=== PATIENT | male | born 1995 | race Caucasian/White ===

== ENCOUNTER 2023-10-15 11:04 | Inpatient (IN) ==
[2023-10-15 12:32] LABS: BASOPHILS # (AUTO) 0.1 X10^3/uL (0.0-0.1); BASOPHILS % (AUTO) 0.7 % (0.2-1.0); EOSINOPHILS % (AUTO) 0.3 % (0.9-2.9); HEMATOCRIT 44.1 % (42.0-54.0); HEMOGLOBIN 14.9 g/dL (13.5-18.0); LYMPHOCYTES # (AUTO) 2.3 X10^3/uL (1.3-2.9); LYMPHOCYTES % (AUTO) 16.7 % (21.0-51.0); MEAN CORPUSCULAR HEMOGLOBIN 30.8 pg (27.0-34.0); MEAN CORPUSCULAR HGB CONC 33.8 g/dL (33.0-35.0); MEAN PLATELET VOLUME 8.8 fL (7.4-11.0); MONOCYTES % (AUTO) 7.4 % (0.0-13.0); NEUTROPHILS # (AUTO) 10.1 x10^3/uL (2.2-4.8); NEUTROPHILS % (AUTO) 74.9 % (42.0-75.0); PLATELET COUNT 236 X10^3/uL (150.0-450.0); RED BLOOD COUNT 4.85 X10^6/uL (4.7-6.0); WHITE BLOOD COUNT 13.5 X10^3/uL (3.6-10.0)
[2023-10-15 12:35] VITALS: BMI 21.4
[2023-10-15 12:45] LABS: ALANINE AMINOTRANSFERASE 21 Units/L (12-78); ALKALINE PHOSPHATASE 111 Units/L (46-116); ASPARTATE AMINO TRANSFERASE 17 Units/L (15-37); BLOOD UREA NITROGEN 10 mg/dL (7-18); CALCIUM 8.9 mg/dL (8.5-10.1); CARBON DIOXIDE 32.3 mmol/L (21-32); CHLORIDE 97 mmol/L (98-107); CREATININE 1.07 mg/dL (0.70-1.30); GLUCOSE 88 mg/dL (65-99); POTASSIUM 4.2 mmol/L (3.5-5.1); SODIUM 133 mmol/L (136-145); TOTAL PROTEIN 8.8 g/dL (6.4-8.2); eGFR NON BLACK RACES > 60 (>60)
[2023-10-15] MEDS: D5W IV ONE (13:33)
[2023-10-15] MEDS: CLEOCIN IV ONE (13:33)
[2023-10-15] MEDS: NS 250 ML IV 25 ML IV PRN (13:35)
[2023-10-15] MEDS: ZOSYN VIAL 3.375 GRAMS 3.375 G in NS 100 ML IV 100 ML IV NR (13:36)
[2023-10-15] MEDS: LR 1,000 ML IV 1,000 ML IV SCH (13:39)
[2023-10-15] MEDS ORDERED: STERILE WATER IRRIGATION IR ONE (14:07)
[2023-10-15] MEDS: VERSED ONE (14:25)
[2023-10-15] MEDS: DILAUDID INJ ONE (14:25)
[2023-10-15] MEDS: NS 500 ML IV 500 ML IV ONE (14:26)
[2023-10-15] MEDS: XYLOCAINE 1 % (PLAIN) ONE (14:40)
[2023-10-15] MEDS: POLYMYXIN B SULFATE ONE (14:40)
[2023-10-15] MEDS: NEOSPORIN OINT ONE (14:56)
[2023-10-15] MEDS: ZOSYN VIAL 3.375 GRAMS 3.375 G in NS 100 ML IV 100 ML IV SCH (19:19)
[2023-10-15] MEDS: CLEOCIN 600 MG IV PREMIX 600 MG/50 ML BAG IV SCH (19:26)
[2023-10-15] MEDS: NORCO 10/325 TAB PO PRN (19:27)
[2023-10-16] MEDS: TORADOL 30 MG VIAL IVP PRN (00:09)
[2023-10-16 06:07] LABS: BASOPHILS # (AUTO) 0.1 X10^3/uL (0.0-0.1); BASOPHILS % (AUTO) 0.7 % (0.2-1.0); EOSINOPHILS # (AUTO) 0.2 x10^3/uL (0.0-0.2); EOSINOPHILS % (AUTO) 2.1 % (0.9-2.9); HEMATOCRIT 40.7 % (42.0-54.0); HEMOGLOBIN 13.6 g/dL (13.5-18.0); LYMPHOCYTES # (AUTO) 3.2 X10^3/uL (1.3-2.9); LYMPHOCYTES % (AUTO) 39.2 % (21.0-51.0); MEAN CORPUSCULAR HEMOGLOBIN 30.5 pg (27.0-34.0); MEAN CORPUSCULAR HGB CONC 33.6 g/dL (33.0-35.0); MONOCYTES # (AUTO) 0.8 x10^3/uL (0.3-0.8); MONOCYTES % (AUTO) 9.9 % (0.0-13.0); NEUTROPHILS % (AUTO) 48.1 % (42.0-75.0); PLATELET COUNT 197 X10^3/uL (150.0-450.0); RED BLOOD COUNT 4.47 X10^6/uL (4.7-6.0); WHITE BLOOD COUNT 8.3 X10^3/uL (3.6-10.0)
[2023-10-16 06:14] LABS: ALANINE AMINOTRANSFERASE 17 Units/L (12-78); ALBUMIN 3.1 g/dL (3.4-5.0); ALKALINE PHOSPHATASE 87 Units/L (46-116); ASPARTATE AMINO TRANSFERASE 13 Units/L (15-37); BLOOD UREA NITROGEN 11 mg/dL (7-18); CALCIUM 8.9 mg/dL (8.5-10.1); CARBON DIOXIDE 30.6 mmol/L (21-32); CHLORIDE 100 mmol/L (98-107); COR CA(FOR HYPOALB) 9.6 mg/dL (8.5-10.1); GLUCOSE 90 mg/dL (65-99); POTASSIUM 4.4 mmol/L (3.5-5.1); SODIUM 136 mmol/L (136-145); TOTAL PROTEIN 7.1 g/dL (6.4-8.2); eGFR NON BLACK RACES > 60 (>60)
[2023-10-16] MEDS: NS IRRIGATION* 500 ML IR ONE ×2 (08:54→08:56)
[2023-10-16] MEDS: HYDROGEN PEROXIDE 3% MT PRN (08:54)
[2023-10-16] MEDS: BACTROBAN TOPICAL OINT TOP PRN (08:55)
[2023-10-16] MEDS: DILAUDID INJ IVP PRN (12:05)
--- NOTE | 2023-10-16 17:34 | DR.PROGNOT ---
HOSPITAL PROGRESS NOTE Progress Note for Day of: Progress Note Date: 10/16/23 Chief Complaint Chief Complaint: Patient is doing fairly well with less swallowing of left index finger but still with significant cellulitis and edema. Final culture report is not available yet. White count is normal and patient is afebrile. Past Medical Family Social History Allergies: Allergies No Known Drug Allergies [NKDA] Allergy (Unknown, Verified 10/15/23 11:58) Vital Signs Vital Signs: Vital Signs Temperature 98.1 F Temperature 97.7 F Pulse Rate [Right Brachial] 72 Pulse Rate [Right Brachial] 66 Respiratory Rate 17 Respiratory Rate 18 Respiratory Rate 18 Respiratory Rate 18 Respiratory Rate 18 Respiratory Rate 18 Blood Pressure [Right Arm] 132/59 Blood Pressure [Right Arm] 113/55 O2 Sat by Pulse Oximetry 98 O2 Sat by Pulse Oximetry 98 Physical Exam Oriented: Normal Eyes: Normal Ear: Normal Nose: Normal Throat: Normal Respiratory: Normal Cardiovascular: Normal Skin: Other (Left index finger with edema and erythema, no necrosis or abscess formation. Normal range of motion.) Speech Pattern: Clear and Appropriate Laboratory and Diagnostics 10/16/23 05:34 10/16/23 05:34 Labs: 10/15/23 14:44 Finger - Left Index Wound Gram Stain - Final 10/15/23 14:44 Finger - Left Index Wound Culture - Preliminary 10/15/23 12:14 Finger - Left Index Wound Culture - Preliminary Laboratory WBC 8.3 X10^3/uL (3.6-10.0) 10/16/23 05:34 RBC 4.47 X10^6/uL (4.7-6.0) L 10/16/23 05:34 Hgb 13.6 g/dL (13.5-18.0) 10/16/23 05:34 Hct 40.7 % (42.0-54.0) L 10/16/23 05:34 MCV 91.0 fL (80.0-100.0) 10/16/23 05:34 MCH 30.5 pg (27.0-34.0) 10/16/23 05:34 MCHC 33.6 g/dL (33.0-35.0) 10/16/23 05:34 RDW 13.0 % (11.6-16.5) 10/16/23 05:34 Plt Count 197 X10^3/uL (150.0-450.0) 10/16/23 05:34 MPV 9.0 fL (7.4-11.0) 10/16/23 05:34 Neut % (Auto) 48.1 % (42.0-75.0) 10/16/23 05:34 Lymph % (Auto) 39.2 % (21.0-51.0) 10/16/23 05:34 [place] % (Auto) 9.9 % (0.0-13.0) 10/16/23 05:34 Eos % (Auto) 2.1 % (0.9-2.9) 10/16/23 05:34 Baso % (Auto) 0.7 % (0.2-1.0) 10/16/23 05:34 Neut # (Auto) 4.0 x10^3/uL (2.2-4.8) 10/16/23 05:34 Lymph # (Auto) 3.2 X10^3/uL (1.3-2.9) H 10/16/23 05:34 [place] # (Auto) 0.8 x10^3/uL (0.3-0.8) 10/16/23 05:34 Eos # (Auto) 0.2 x10^3/uL (0.0-0.2) 10/16/23 05:34 Baso # (Auto) 0.1 X10^3/uL (0.0-0.1) 10/16/23 05:34 Absolute Nucleated RBC 0.0 /100WBC 10/16/23 05:34 Sodium 136 mmol/L (136-145) 10/16/23 05:34 Corrected Sodium TNP 10/16/23 05:34 Potassium 4.4 mmol/L (3.5-5.1) 10/16/23 05:34 Chloride 100 mmol/L (98-107) 10/16/23 05:34 Carbon Dioxide 30.6 mmol/L (21-32) 10/16/23 05:34 BUN 11 mg/dL (7-18) 10/16/23 05:34 Creatinine 1.00 mg/dL (0.70-1.30) 10/16/23 05:34 Est GFR (MDRD) Af Amer > 60 (>60) 10/16/23 05:34 Est GFR (MDRD) Non-Af > 60 (>60) 10/16/23 05:34 Glucose 90 mg/dL (65-99) 10/16/23 05:34 Calcium 8.9 mg/dL (8.5-10.1) 10/16/23 05:34 Corrected Calcium 9.6 mg/dL (8.5-10.1) 10/16/23 05:34 Total Bilirubin 0.70 mg/dL (0.2-1.0) 10/16/23 05:34 AST 13 Units/L (15-37) L 10/16/23 05:34 ALT 17 Units/L (12-78) 10/16/23 05:34 Alkaline Phosphatase 87 Units/L (46-116) 10/16/23 05:34 Total Protein 7.1 g/dL (6.4-8.2) 10/16/23 05:34 Albumin 3.1 g/dL (3.4-5.0) L 10/16/23 05:34 Globulin 4.0 g/dL (2.5-4.5) 10/16/23 05:34 Albumin/Globulin Ratio 0.8 Ratio (1.1-2.1) L 10/16/23 05:34 Assessment and Plan 1: Severe cellulitis left index finger status post debridement in the operating room. Same IV antibiotics and local care with elevation and dressing changes. Awaiting final culture report.
[2023-10-16] MEDS: BACTROBAN TOPICAL OINT TOP SCH (21:48)
[2023-10-16] MEDS: CLEOCIN VIAL 600 MG 900 MG in D5W 50 ML IV 50 ML IV ONE (21:48)
[2023-10-17 07:16] LABS: BASOPHILS # (AUTO) 0.1 X10^3/uL (0.0-0.1); EOSINOPHILS # (AUTO) 0.2 x10^3/uL (0.0-0.2); EOSINOPHILS % (AUTO) 3.3 % (0.9-2.9); HEMATOCRIT 40.4 % (42.0-54.0); HEMOGLOBIN 13.5 g/dL (13.5-18.0); LYMPHOCYTES # (AUTO) 2.7 X10^3/uL (1.3-2.9); LYMPHOCYTES % (AUTO) 45.4 % (21.0-51.0); MEAN CORPUSCULAR HEMOGLOBIN 30.4 pg (27.0-34.0); MEAN CORPUSCULAR HGB CONC 33.3 g/dL (33.0-35.0); MEAN CORPUSCULAR VOLUME 91.4 fL (80.0-100.0); MEAN PLATELET VOLUME 9.3 fL (7.4-11.0); MONOCYTES # (AUTO) 0.6 x10^3/uL (0.3-0.8); MONOCYTES % (AUTO) 9.8 % (0.0-13.0); NEUTROPHILS # (AUTO) 2.4 x10^3/uL (2.2-4.8); NEUTROPHILS % (AUTO) 40.5 % (42.0-75.0); PLATELET COUNT 191 X10^3/uL (150.0-450.0); RED BLOOD COUNT 4.42 X10^6/uL (4.7-6.0); RED CELL DISTRIBUTION WIDTH 13.2 % (11.6-16.5); WHITE BLOOD COUNT 5.9 X10^3/uL (3.6-10.0)
[2023-10-17 07:35] LABS: ALANINE AMINOTRANSFERASE 17 Units/L (12-78); ALBUMIN 2.8 g/dL (3.4-5.0); ALKALINE PHOSPHATASE 79 Units/L (46-116); ASPARTATE AMINO TRANSFERASE 17 Units/L (15-37); BLOOD UREA NITROGEN 10 mg/dL (7-18); CALCIUM 8.4 mg/dL (8.5-10.1); CARBON DIOXIDE 28.8 mmol/L (21-32); CHLORIDE 102 mmol/L (98-107); COR CA(FOR HYPOALB) 9.4 mg/dL (8.5-10.1); CREATININE 0.93 mg/dL (0.70-1.30); GLUCOSE 82 mg/dL (65-99); POTASSIUM 3.9 mmol/L (3.5-5.1); SODIUM 138 mmol/L (136-145); TOTAL PROTEIN 6.4 g/dL (6.4-8.2); eGFR NON BLACK RACES > 60 (>60)
[2023-10-17] MEDS ORDERED: PHARMACY CONSULT - VANCOMYCIN XX SCH (09:00)
[2023-10-17] MEDS ORDERED: CONSULT PHARMACY - POTASSIUM & MAGNESIUM XX SCH (09:00)
[2023-10-17] MEDS: VANCOMYCIN IV *PREMIX 1.5 G/300 ML BAG 1.5 G/300 ML PIGGYBACK IV NR (09:55)
[2023-10-17] MEDS: VANCOMYCIN IV *PREMIX 1 G/200 ML BAG 1 G/200 ML PIGGYBACK IV SCH (13:37)
--- NOTE | 2023-10-17 15:52 | DR.PROGNOT ---
HOSPITAL PROGRESS NOTE Progress Note for Day of: Progress Note Date: 10/17/23 Chief Complaint Chief Complaint: Patient is doing fairly well with less swallowing of left index finger but still with significant cellulitis and edema. Final culture report is showing MRSA, antibiotics was changed to vancomycin. Past Medical Family Social History Allergies: Allergies No Known Drug Allergies [NKDA] Allergy (Unknown, Verified 10/15/23 11:58) Vital Signs Vital Signs: Vital Signs Temperature 98.2 F Temperature 98.1 F Pulse Rate [Right Brachial] 82 Pulse Rate [Right Brachial] 64 Respiratory Rate 20 Respiratory Rate 18 Respiratory Rate 18 Respiratory Rate 18 Respiratory Rate 18 Blood Pressure [Right Arm] 163/71 Blood Pressure [Right Arm] 112/55 O2 Sat by Pulse Oximetry 95 O2 Sat by Pulse Oximetry 100 Physical Exam Oriented: Normal Eyes: Normal Ear: Normal Nose: Normal Throat: Normal Respiratory: Normal Cardiovascular: Normal Skin: Other (Left index finger with edema and erythema, no necrosis or abscess formation. Normal range of motion.) Speech Pattern: Clear and Appropriate Laboratory and Diagnostics 10/17/23 06:13 10/17/23 06:13 Labs: 10/15/23 12:14 Finger - Left Index Wound Culture - Preliminary Methicillin Resis Staph Aureus 10/15/23 14:44 Finger - Left Index Wound Gram Stain - Final 10/15/23 14:44 Finger - Left Index Wound Culture - Preliminary Methicillin Resis Staph Aureus 10/15/23 12:24 Blood Blood Culture - Preliminary 10/15/23 12:06 Blood Blood Culture - Preliminary Laboratory WBC 5.9 X10^3/uL (3.6-10.0) 10/17/23 06:13 RBC 4.42 X10^6/uL (4.7-6.0) L 10/17/23 06:13 Hgb 13.5 g/dL (13.5-18.0) 10/17/23 06:13 Hct 40.4 % (42.0-54.0) L 10/17/23 06:13 MCV 91.4 fL (80.0-100.0) 10/17/23 06:13 MCH 30.4 pg (27.0-34.0) 10/17/23 06:13 MCHC 33.3 g/dL (33.0-35.0) 10/17/23 06:13 RDW 13.2 % (11.6-16.5) 10/17/23 06:13 Plt Count 191 X10^3/uL (150.0-450.0) 10/17/23 06:13 MPV 9.3 fL (7.4-11.0) 10/17/23 06:13 Neut % (Auto) 40.5 % (42.0-75.0) L 10/17/23 06:13 Lymph % (Auto) 45.4 % (21.0-51.0) 10/17/23 06:13 [place] % (Auto) 9.8 % (0.0-13.0) 10/17/23 06:13 Eos % (Auto) 3.3 % (0.9-2.9) H 10/17/23 06:13 Baso % (Auto) 1.0 % (0.2-1.0) 10/17/23 06:13 Neut # (Auto) 2.4 x10^3/uL (2.2-4.8) 10/17/23 06:13 Lymph # (Auto) 2.7 X10^3/uL (1.3-2.9) 10/17/23 06:13 [place] # (Auto) 0.6 x10^3/uL (0.3-0.8) 10/17/23 06:13 Eos # (Auto) 0.2 x10^3/uL (0.0-0.2) 10/17/23 06:13 Baso # (Auto) 0.1 X10^3/uL (0.0-0.1) 10/17/23 06:13 Absolute Nucleated RBC 0.1 /100WBC 10/17/23 06:13 Sodium 138 mmol/L (136-145) 10/17/23 06:13 Corrected Sodium TNP 10/17/23 06:13 Potassium 3.9 mmol/L (3.5-5.1) 10/17/23 06:13 Chloride 102 mmol/L (98-107) 10/17/23 06:13 Carbon Dioxide 28.8 mmol/L (21-32) 10/17/23 06:13 BUN 10 mg/dL (7-18) 10/17/23 06:13 Creatinine 0.93 mg/dL (0.70-1.30) 10/17/23 06:13 Est GFR (MDRD) Af Amer > 60 (>60) 10/17/23 06:13 Est GFR (MDRD) Non-Af > 60 (>60) 10/17/23 06:13 Glucose 82 mg/dL (65-99) 10/17/23 06:13 Calcium 8.4 mg/dL (8.5-10.1) L 10/17/23 06:13 Corrected Calcium 9.4 mg/dL (8.5-10.1) 10/17/23 06:13 Total Bilirubin 0.20 mg/dL (0.2-1.0) 10/17/23 06:13 AST 17 Units/L (15-37) 10/17/23 06:13 ALT 17 Units/L (12-78) 10/17/23 06:13 Alkaline Phosphatase 79 Units/L (46-116) 10/17/23 06:13 Total Protein 6.4 g/dL (6.4-8.2) 10/17/23 06:13 Albumin 2.8 g/dL (3.4-5.0) L 10/17/23 06:13 Globulin 3.6 g/dL (2.5-4.5) 10/17/23 06:13 Albumin/Globulin Ratio 0.8 Ratio (1.1-2.1) L 10/17/23 06:13 Assessment and Plan 1: Severe cellulitis left index finger status post debridement in the operating room. Same IV vancomycin and local care. Will follow in the office after discharge..
[2023-10-18 04:41] VITALS: TEMP 98
[2023-10-18] MEDS ORDERED: PHARMACY COMMENT IV NR (05:30)
[2023-10-18 06:49] LABS: BASOPHILS # (AUTO) 0.1 X10^3/uL (0.0-0.1); BASOPHILS % (AUTO) 1.2 % (0.2-1.0); EOSINOPHILS # (AUTO) 0.1 x10^3/uL (0.0-0.2); EOSINOPHILS % (AUTO) 2.1 % (0.9-2.9); HEMATOCRIT 40.4 % (42.0-54.0); HEMOGLOBIN 13.7 g/dL (13.5-18.0); LYMPHOCYTES # (AUTO) 2.6 X10^3/uL (1.3-2.9); LYMPHOCYTES % (AUTO) 43.7 % (21.0-51.0); MEAN CORPUSCULAR HEMOGLOBIN 30.7 pg (27.0-34.0); MEAN CORPUSCULAR HGB CONC 33.9 g/dL (33.0-35.0); MEAN CORPUSCULAR VOLUME 90.7 fL (80.0-100.0); MEAN PLATELET VOLUME 9.2 fL (7.4-11.0); MONOCYTES # (AUTO) 0.7 x10^3/uL (0.3-0.8); MONOCYTES % (AUTO) 11.9 % (0.0-13.0); NEUTROPHILS # (AUTO) 2.4 x10^3/uL (2.2-4.8); NEUTROPHILS % (AUTO) 41.1 % (42.0-75.0); PLATELET COUNT 222 X10^3/uL (150.0-450.0); RED BLOOD COUNT 4.45 X10^6/uL (4.7-6.0); RED CELL DISTRIBUTION WIDTH 12.9 % (11.6-16.5); WHITE BLOOD COUNT 5.9 X10^3/uL (3.6-10.0)
[2023-10-18 07:01] LABS: CREATININE 0.81 mg/dL (0.70-1.30); VANCOMYCIN,TROUGH 11.9 ug/mL (15-20)
[2023-10-18 07:11] LABS: ALANINE AMINOTRANSFERASE 21 Units/L (12-78); ALBUMIN 2.8 g/dL (3.4-5.0); ALKALINE PHOSPHATASE 79 Units/L (46-116); ASPARTATE AMINO TRANSFERASE 16 Units/L (15-37); BLOOD UREA NITROGEN 9 mg/dL (7-18); CALCIUM 8.5 mg/dL (8.5-10.1); CARBON DIOXIDE 30.2 mmol/L (21-32); CHLORIDE 101 mmol/L (98-107); COR CA(FOR HYPOALB) 9.5 mg/dL (8.5-10.1); CREATININE 0.84 mg/dL (0.70-1.30); GLUCOSE 90 mg/dL (65-99); SODIUM 135 mmol/L (136-145); TOTAL PROTEIN 6.6 g/dL (6.4-8.2); eGFR NON BLACK RACES > 60 (>60)
--- NOTE | 2023-10-18 09:23 | DR.PROGNOT ---
HOSPITAL PROGRESS NOTE Progress Note for Day of: Progress Note Date: 10/18/23 Chief Complaint Chief Complaint: Patient is doing fairly well with less swallowing of left index finger but still with significant cellulitis and edema. Final culture report is showing MRSA, sensitive to Clindamycin and Sulfa drugs Past Medical Family Social History Past Med/Fam/Surg Hx: No changes since H&P Allergies: Allergies No Known Drug Allergies [NKDA] Allergy (Unknown, Verified 10/15/23 11:58) Vital Signs Vital Signs: Vital Signs Temperature 98 F Pulse Rate [Right Brachial] 80 Respiratory Rate 22 Respiratory Rate 18 Blood Pressure [Right Arm] 110/59 O2 Sat by Pulse Oximetry 97 Physical Exam Oriented: Normal Eyes: Normal Ear: Normal Nose: Normal Throat: Normal Respiratory: Normal Cardiovascular: Normal Skin: Other (Left index finger with edema and erythema, no necrosis or abscess formation. Normal range of motion.) Speech Pattern: Clear and Appropriate Laboratory and Diagnostics 10/18/23 05:36 10/18/23 05:36 Labs: 10/15/23 12:14 Finger - Left Index Wound Culture - Preliminary Methicillin Resis Staph Aureus 10/15/23 14:44 Finger - Left Index Wound Gram Stain - Final 10/15/23 14:44 Finger - Left Index Wound Culture - Preliminary Methicillin Resis Staph Aureus 10/15/23 12:24 Blood Blood Culture - Preliminary 10/15/23 12:06 Blood Blood Culture - Preliminary Laboratory WBC 5.9 X10^3/uL (3.6-10.0) 10/18/23 05:36 RBC 4.45 X10^6/uL (4.7-6.0) L 10/18/23 05:36 Hgb 13.7 g/dL (13.5-18.0) 10/18/23 05:36 Hct 40.4 % (42.0-54.0) L 10/18/23 05:36 MCV 90.7 fL (80.0-100.0) 10/18/23 05:36 MCH 30.7 pg (27.0-34.0) 10/18/23 05:36 MCHC 33.9 g/dL (33.0-35.0) 10/18/23 05:36 RDW 12.9 % (11.6-16.5) 10/18/23 05:36 Plt Count 222 X10^3/uL (150.0-450.0) 10/18/23 05:36 MPV 9.2 fL (7.4-11.0) 10/18/23 05:36 Neut % (Auto) 41.1 % (42.0-75.0) L 10/18/23 05:36 Lymph % (Auto) 43.7 % (21.0-51.0) 10/18/23 05:36 [place] % (Auto) 11.9 % (0.0-13.0) 10/18/23 05:36 Eos % (Auto) 2.1 % (0.9-2.9) 10/18/23 05:36 Baso % (Auto) 1.2 % (0.2-1.0) H 10/18/23 05:36 Neut # (Auto) 2.4 x10^3/uL (2.2-4.8) 10/18/23 05:36 Lymph # (Auto) 2.6 X10^3/uL (1.3-2.9) 10/18/23 05:36 [place] # (Auto) 0.7 x10^3/uL (0.3-0.8) 10/18/23 05:36 Eos # (Auto) 0.1 x10^3/uL (0.0-0.2) 10/18/23 05:36 Baso # (Auto) 0.1 X10^3/uL (0.0-0.1) 10/18/23 05:36 Absolute Nucleated RBC 0.0 /100WBC 10/18/23 05:36 Sodium 135 mmol/L (136-145) L 10/18/23 05:36 Corrected Sodium TNP 10/18/23 05:36 Potassium 4.0 mmol/L (3.5-5.1) 10/18/23 05:36 Chloride 101 mmol/L (98-107) 10/18/23 05:36 Carbon Dioxide 30.2 mmol/L (21-32) 10/18/23 05:36 BUN 9 mg/dL (7-18) 10/18/23 05:36 Creatinine 0.81 mg/dL (0.70-1.30) 10/18/23 05:36 Creatinine 0.84 mg/dL (0.70-1.30) 10/18/23 05:36 Est GFR (MDRD) Af Amer > 60 (>60) 10/18/23 05:36 Est GFR (MDRD) Non-Af > 60 (>60) 10/18/23 05:36 Glucose 90 mg/dL (65-99) 10/18/23 05:36 Calcium 8.5 mg/dL (8.5-10.1) 10/18/23 05:36 Corrected Calcium 9.5 mg/dL (8.5-10.1) 10/18/23 05:36 Total Bilirubin 0.20 mg/dL (0.2-1.0) 10/18/23 05:36 AST 16 Units/L (15-37) 10/18/23 05:36 ALT 21 Units/L (12-78) 10/18/23 05:36 Alkaline Phosphatase 79 Units/L (46-116) 10/18/23 05:36 Total Protein 6.6 g/dL (6.4-8.2) 10/18/23 05:36 Albumin 2.8 g/dL (3.4-5.0) L 10/18/23 05:36 Globulin 3.8 g/dL (2.5-4.5) 10/18/23 05:36 Albumin/Globulin Ratio 0.7 Ratio (1.1-2.1) L 10/18/23 05:36 Vancomycin Trough 11.9 ug/mL (15-20) L 10/18/23 05:36 Assessment and Plan 1: Severe cellulitis left index finger status post debridement in the operating room. could be D/C on Clindamycin and Bactrim DS . local care with soaking in H1O2 and Saline , Bacrtoban , elevation . f/u in 10 days
[2023-10-18 09:31] VITALS: BP 137/62; PULSE 67; O2SAT 100
[2023-10-18 11:26] VITALS: RESP 20
--- NOTE | 2023-10-19 12:58 | W.DIS.FURT ---
Summary of Discharge Discharge Summary of Date Date of Exam: 10/18/23 Admission Date Date of Admission: 10/15/23 Admission Diagnosis Hospital Course: Patient is a 27-year-old male that was admitted for severe cellulitis left index finger. General surgeryDrEmily Al was consulted. He was placed on IV antibiotics. He is status post debridement. Patient responded well to treatments. Symptoms significantly improved. He will be discharged on clindamycin and Bactrim DS. Instructed local care with soaking in H1O2 and Saline , Bactroban , elevation. He will f/u in 10 days with general surgery. Follow up with pcp in 1 week. Patient was discharged in stable condition. Vital Signs: Vital Signs (72 hours) 10/15/23 11:40 10/15/23 19:27 10/15/23 14:10 Temperature 99.4 F Pulse Rate 89 Pulse Rate [Right Brachial] Respiratory Rate 20 19 Blood Pressure 161/89 Blood Pressure [Right Arm] O2 Sat by Pulse Oximetry 99 Oxygen Delivery Method Room Air Room Air 10/15/23 14:25 10/15/23 14:25 10/15/23 14:35 Temperature Pulse Rate 90 94 H Pulse Rate [Right Brachial] Respiratory Rate 20 20 19 Blood Pressure 160/92 178/89 Blood Pressure [Right Arm] O2 Sat by Pulse Oximetry 98 99 Oxygen Delivery Method Nasal Cannula Nasal Cannula 10/15/23 14:45 10/15/23 14:55 10/15/23 15:00 Temperature Pulse Rate 100 H 88 90 Pulse Rate [Right Brachial] Respiratory Rate 21 20 19 Blood Pressure 151/86 160/93 146/90 Blood Pressure [Right Arm] O2 Sat by Pulse Oximetry 99 97 98 Oxygen Delivery Method Nasal Cannula Nasal Cannula Room Air 10/15/23 12:00 10/15/23 15:15 10/15/23 15:30 Temperature 98.2 F 98.4 F 98.0 F Pulse Rate Pulse Rate [Right Brachial] 93 H 89 103 H Respiratory Rate 18 20 20 Blood Pressure Blood Pressure [Right Arm] 138/78 141/81 141/77 O2 Sat by Pulse Oximetry 100 99 99 Oxygen Delivery Method Room Air 10/15/23 15:45 10/15/23 16:00 10/15/23 16:15 Temperature 98.3 F 98.1 F 97.9 F Pulse Rate Pulse Rate [Right Brachial] 90 77 86 Respiratory Rate 18 18 19 Blood Pressure Blood Pressure [Right Arm] 155/81 153/71 140/65 O2 Sat by Pulse Oximetry 96 98 99 Oxygen Delivery Method 10/15/23 20:27 10/15/23 20:00 10/15/23 21:27 Temperature 97.9 F Pulse Rate Pulse Rate [Right Brachial] 73 Respiratory Rate 19 18 19 Blood Pressure Blood Pressure [Right Arm] 129/74 O2 Sat by Pulse Oximetry 99 Oxygen Delivery Method Room Air 10/15/23 19:00 10/16/23 00:09 10/16/23 00:00 Temperature 97.7 F Pulse Rate Pulse Rate [Right Brachial] 82 Respiratory Rate 18 18 Blood Pressure Blood Pressure [Right Arm] 133/66 O2 Sat by Pulse Oximetry 97 Oxygen Delivery Method Room Air Room Air 10/16/23 00:39 10/16/23 01:09 10/16/23 04:00 Temperature 98.0 F Pulse Rate Pulse Rate [Right Brachial] 52 L Respiratory Rate 17 17 18 Blood Pressure Blood Pressure [Right Arm] 110/56 O2 Sat by Pulse Oximetry 99 Oxygen Delivery Method Room Air 10/16/23 07:00 10/16/23 08:56 10/16/23 10:46 Temperature Pulse Rate Pulse Rate [Right Brachial] Respiratory Rate 18 18 Blood Pressure Blood Pressure [Right Arm] O2 Sat by Pulse Oximetry Oxygen Delivery Method Room Air 10/16/23 12:05 10/16/23 14:44 10/16/23 16:33 Temperature Pulse Rate Pulse Rate [Right Brachial] Respiratory Rate 18 18 17 Blood Pressure Blood Pressure [Right Arm] O2 Sat by Pulse Oximetry Oxygen Delivery Method 10/16/23 18:25 10/16/23 08:00 10/16/23 12:00 Temperature 97.8 F 97.7 F Pulse Rate Pulse Rate [Right Brachial] 66 66 Respiratory Rate 18 18 18 Blood Pressure Blood Pressure [Right Arm] 108/51 113/55 O2 Sat by Pulse Oximetry 100 98 Oxygen Delivery Method Room Air Room Air 10/16/23 16:00 10/16/23 19:00 10/16/23 19:00 Temperature 98.1 F Pulse Rate Pulse Rate [Right Brachial] 72 Respiratory Rate 18 17 Blood Pressure Blood Pressure [Right Arm] 132/59 O2 Sat by Pulse Oximetry 98 Oxygen Delivery Method Room Air Room Air 10/16/23 19:30 10/16/23 20:00 10/16/23 23:55 Temperature 97.7 F Pulse Rate Pulse Rate [Right Brachial] 69 Respiratory Rate 18 21 18 Blood Pressure Blood Pressure [Right Arm] 126/78 O2 Sat by Pulse Oximetry 98 Oxygen Delivery Method Room Air 10/17/23 00:55 10/17/23 00:00 10/17/23 04:00 Temperature 97.9 F 97.9 F Pulse Rate Pulse Rate [Right Brachial] 78 73 Respiratory Rate 18 19 21 Blood Pressure Blood Pressure [Right Arm] 115/55 125/57 O2 Sat by Pulse Oximetry 98 99 Oxygen Delivery Method Room Air Room Air 10/17/23 10:27 10/17/23 13:51 10/17/23 13:58 Temperature Pulse Rate Pulse Rate [Right Brachial] Respiratory Rate 18 18 20 Blood Pressure Blood Pressure [Right Arm] O2 Sat by Pulse Oximetry Oxygen Delivery Method 10/17/23 16:35 10/17/23 07:00 10/17/23 08:00 Temperature 98.1 F Pulse Rate Pulse Rate [Right Brachial] 64 Respiratory Rate 18 18 Blood Pressure Blood Pressure [Right Arm] 112/55 O2 Sat by Pulse Oximetry 100 Oxygen Delivery Method Room Air Room Air 10/17/23 12:00 10/17/23 16:00 10/17/23 19:00 Temperature 98.2 F 98.2 F Pulse Rate Pulse Rate [Right Brachial] 82 71 Respiratory Rate 18 18 Blood Pressure Blood Pressure [Right Arm] 163/71 119/57 O2 Sat by Pulse Oximetry 95 98 Oxygen Delivery Method Room Air Room Air Room Air 10/17/23 20:00 10/17/23 20:40 10/17/23 21:10 Temperature 98.3 F Pulse Rate Pulse Rate [Right Brachial] 79 Respiratory Rate 18 20 18 Blood Pressure Blood Pressure [Right Arm] 133/58 O2 Sat by Pulse Oximetry 97 Oxygen Delivery Method Room Air 10/18/23 00:00 10/18/23 04:00 10/18/23 08:40 Temperature 97.8 F 98 F Pulse Rate Pulse Rate [Right Brachial] 66 80 Respiratory Rate 18 18 22 Blood Pressure Blood Pressure [Right Arm] 112/66 110/59 O2 Sat by Pulse Oximetry 97 97 Oxygen Delivery Method Room Air Room Air 10/18/23 08:00 Temperature 98 F Pulse Rate Pulse Rate [Right Brachial] 67 Respiratory Rate 22 Blood Pressure Blood Pressure [Right Arm] 137/62 O2 Sat by Pulse Oximetry 100 Oxygen Delivery Method Room Air Labs: Laboratory Last Values WBC 5.9 X10^3/uL (3.6-10.0) 10/18/23 05:36 RBC 4.45 X10^6/uL (4.7-6.0) L 10/18/23 05:36 Hgb 13.7 g/dL (13.5-18.0) 10/18/23 05:36 Hct 40.4 % (42.0-54.0) L 10/18/23 05:36 MCV 90.7 fL (80.0-100.0) 10/18/23 05:36 MCH 30.7 pg (27.0-34.0) 10/18/23 05:36 MCHC 33.9 g/dL (33.0-35.0) 10/18/23 05:36 RDW 12.9 % (11.6-16.5) 10/18/23 05:36 Plt Count 222 X10^3/uL (150.0-450.0) 10/18/23 05:36 MPV 9.2 fL (7.4-11.0) 10/18/23 05:36 Neut % (Auto) 41.1 % (42.0-75.0) L 10/18/23 05:36 Lymph % (Auto) 43.7 % (21.0-51.0) 10/18/23 05:36 [place] % (Auto) 11.9 % (0.0-13.0) 10/18/23 05:36 Eos % (Auto) 2.1 % (0.9-2.9) 10/18/23 05:36 Baso % (Auto) 1.2 % (0.2-1.0) H 10/18/23 05:36 Neut # (Auto) 2.4 x10^3/uL (2.2-4.8) 10/18/23 05:36 Lymph # (Auto) 2.6 X10^3/uL (1.3-2.9) 10/18/23 05:36 [place] # (Auto) 0.7 x10^3/uL (0.3-0.8) 10/18/23 05:36 Eos # (Auto) 0.1 x10^3/uL (0.0-0.2) 10/18/23 05:36 Baso # (Auto) 0.1 X10^3/uL (0.0-0.1) 10/18/23 05:36 Absolute Nucleated RBC 0.0 /100WBC 10/18/23 05:36 Sodium 135 mmol/L (136-145) L 10/18/23 05:36 Corrected Sodium TNP 10/18/23 05:36 Potassium 4.0 mmol/L (3.5-5.1) 10/18/23 05:36 Chloride 101 mmol/L (98-107) 10/18/23 05:36 Carbon Dioxide 30.2 mmol/L (21-32) 10/18/23 05:36 BUN 9 mg/dL (7-18) 10/18/23 05:36 Creatinine 0.81 mg/dL (0.70-1.30) 10/18/23 05:36 Creatinine 0.84 mg/dL (0.70-1.30) 10/18/23 05:36 Est GFR (MDRD) Af Amer > 60 (>60) 10/18/23 05:36 Est GFR (MDRD) Non-Af > 60 (>60) 10/18/23 05:36 Glucose 90 mg/dL (65-99) 10/18/23 05:36 Calcium 8.5 mg/dL (8.5-10.1) 10/18/23 05:36 Corrected Calcium 9.5 mg/dL (8.5-10.1) 10/18/23 05:36 Total Bilirubin 0.20 mg/dL (0.2-1.0) 10/18/23 05:36 AST 16 Units/L (15-37) 10/18/23 05:36 ALT 21 Units/L (12-78) 10/18/23 05:36 Alkaline Phosphatase 79 Units/L (46-116) 10/18/23 05:36 Total Protein 6.6 g/dL (6.4-8.2) 10/18/23 05:36 Albumin 2.8 g/dL (3.4-5.0) L 10/18/23 05:36 Globulin 3.8 g/dL (2.5-4.5) 10/18/23 05:36 Albumin/Globulin Ratio 0.7 Ratio (1.1-2.1) L 10/18/23 05:36 Vancomycin Trough 11.9 ug/mL (15-20) L 10/18/23 05:36 Reason For Visit: ABCESS, GANGRENE LEFT INDEX FINGER Discharge Date Discharge Date: 10/18/23 Discharge Diagnosis All Active Problems (Updated 10/18/23 @ 08:59 by Kerry Farrar) Incisional abscess (Acute) Abscess (Acute) Plan of Treatment: Continue with present treatment and follow up plan. Pt is to keep follow up appointment as instructed and take medications as ordered. Discharge Medications Discharge Medications: No Known Drug Allergies [NKDA] Allergy (Unknown, Verified 10/15/23 11:58) New Prescriptions clindamycin HCl 75 mg capsule 300 mg PO TID #30 caps 10/18/23 [Rx] sulfamethoxazole 800 mg-trimethoprim 160 mg tablet (Bactrim DS) 1 tab PO Q12H #20 tabs 10/18/23 [Rx] Discharge Plan Discharge Plan Hospital Course: Patient is a 27-year-old male that was admitted for severe cellulitis left index finger. General surgeryDrEmily Al was consulted. He was placed on IV antibiotics. He is status post debridement. Patient responded well to treatments. Symptoms significantly improved. He will be discharged on clindamycin and Bactrim DS. Instructed local care with soaking in H1O2 and Saline , Bactroban , elevation. He will f/u in 10 days with general surgery. Follow up with pcp in 1 week. Patient was discharged in stable condition. Patient Disposition: 01 HOME, SELF-CARE Condition: Stable Health Concerns: Post Hospitalization: new medications and changes needed to prevent readmission or further decline. Pt educated and given instructions on all concerns. Plan of Treatment: Continue with present treatment and follow up plan. Pt is to keep follow up appointment as instructed and take medications as ordered. Prescriptions: New clindamycin HCl 75 mg Capsule 300 mg PO TID Qty: 30 0RF sulfamethoxazole-trimethoprim [Bactrim DS] 800-160 mg Tablet 1 tab PO Q12H Qty: 20 0RF Follow ups/Referrals Follow ups/Referrals: JUAN ALCALA [Primary Care Provider] - 1 WEEK TRANG WALLS [STAFF PHYSICIAN] - 1 WEEK (pt is to call and flu on 09/12/24) Instructions Instructions: Skin Abscess, [id number], Wound Infection, [id number] Activity Restrictions/Additional Instructions: pt is to keep arm elevated and apply ointment daily to wound ,br Stand Alone Forms: Excuse From Work or School, Post Hospital Follow Up Care
== END 2023-10-18 10:20 | disposition home or self-care (01) | DRG 982 ==
LOC: MED/SURG 11:17
PROVIDERS: ADMIT Obstetrics & Gynecology Obstetrics; ATTEND Obstetrics & Gynecology Obstetrics